=== PATIENT | male | born 1980 | race Caucasian/White ===

== ENCOUNTER 2021-06-23 14:36 | Emergency (ER) | payer BC, SELFPAY ==
--- NOTE | ~2021-06-23 | CT_ITS ---
EXAMINATION: CT abdomen pelvis wo con DATE: 06/23/2021 15:15 INDICATION: Right flank pain TECHNIQUE: Computed tomography (CT) of the abdomen was performed without intravenous contrast. The do se-length product (DLP) was 912.26 mGy-cm. Automated exposure control and iterative reconstruction te nique were employed. COMPARISON: 08/15/2013 FINDINGS: The lung bases are clear. The heart size is normal. The liver, spleen, pancreas, gallbladde r, and adrenal glands are normal. There is a 7 mm stone in the right distal ureter. There is a 7 mm s tone at the right ureterovesicular junction as well. These result in moderate right hydroureteronephr osis. Nonobstructing stones of the left kidney measure up to 6 mm. No pathologically enlarged abdomin al or pelvic lymph nodes are identified. There is no free intraperitoneal gas or evidence of bowel ob struction. There is mild lumbar spondylosis at L5-S1. IMPRESSION: 1. 7 mm stones in the right distal ureter and at the right ureterovesicular junction causing moderate right hydroureteronephrosis. 2. Left nephrolithiasis. Reviewed, dictated and finalized at location A. IMPRESSION: 1. 7 mm stones in the right distal ureter and at the right ureterovesicular amada ction causing moderate right hydroureteronephrosis. 2. Left nephrolithiasis.
[2021-06-23 14:50] VITALS: BP 187/110; PULSE 75; RESP 18; TEMP 36.4; O2SAT 96
[2021-06-23] MEDS: SODIUM CHLORIDE 0.9% IV 500 ML 999 ML IV CONT (15:05)
[2021-06-23] MEDS: ONDANSETRON INJ 4 MG/2 ML VIAL IV PUSH (15:05)
[2021-06-23] MEDS: MORPHINE SULFATE (*CRX) 2 MG/ML INJ IV PUSH ×3 (15:06→16:46)
[2021-06-23 15:12] LABS: Add Urine Microscopic? YES; Appearance Urine Clear (Clear); Bilirubin Urine Negative (Negative); Blood Urine 2+ (Negative); Color Urine Light Yellow (Yellow); Glucose Urine UA Negative (Negative); Ketones Urine Negative (Negative); Leukocyte Esterase Ur Negative (Negative); Nitrate Urine Negative (Negative); Protein Urine Trace (Negative); Specific Grav Ur >= 1.030 (1.010-1.020); Urobilinogen Urine 0.2 mg/dL (0.2-1.0)
[2021-06-23 15:12] LABS: Basophils Absolute Auto 0.09 K/mm3 (0.00-0.10); Basophils Percent Auto 0.7 % (0.0-1.0); Eosinophils Absolute Auto 0.48 K/mm3 (0.02-0.50); Eosinophils Percent Auto 3.9 % (1.0-6.0); Hematocrit 46.4 % (40.0-54.0); Hemoglobin 15.6 g/dL (14.0-18.0); Immature Granulocyte Absolute 0.08 K/mm3 (0.00-0.00); Immature Granulocyte Percent A 0.7 % (0.0-0.0); Lymphocytes Absolute Auto 1.77 K/mm3 (1.10-4.50); Lymphocytes Percent Auto 14.4 % (18.0-42.0); Mean Corpuscular HGB Conc 33.6 g/dL (32.0-36.0); Mean Corpuscular Hemoglobin 29.2 pg (27.0-31.0); Mean Corpuscular Volume 86.9 fL (78.0-102.0); Mean Platelet Volume 9.3 fl (8.7-11.0); Monocytes Absolute Auto 0.95 K/mm3 (0.10-0.90); Monocytes Percent Auto 7.8 % (2.0-11.0); Neutrophils Absolute Auto 8.9 K/mm3 (1.7-7.2); Neutrophils Percent Auto 72.5 % (50.0-70.0); Platelet Count Result 278 K/mm3 (150-420); Red Blood Count 5.34 M/mm3 (4.70-6.10); Red Cell Distribution Width 12.3 % (11.6-14.4); White Blood Count 12.3 K/mm3 (4.8-10.8)
[2021-06-23 15:18] LABS: RBC Urine 21-50 /hpf (0-2); WBC Urine 0-3 /hpf (0-3)
[2021-06-23 15:19] LABS: Bacteria Urine 1+ /hpf
[2021-06-23 15:30] LABS: Alanine Aminotransferase 44 U/L (16-63); Albumin Level 4.7 g/dL (3.4-5.0); Alkaline Phosphatase 61 U/L (46-116); Anion Gap 14 mmol/L (8-16); Aspartate Amino Transferase 30 U/L (15-37); Bilirubin,Total 0.8 mg/dL (0.00-1.00); Blood Urea Nitrogen 17 mg/dL (7-18); Calcium 10.2 mg/dL (8.5-10.1); Carbon Dioxide 24 mmol/L (21-32); Chloride 104 mmol/L (98-108); Estimated CRCL calculation 84 ml/min; Estimated Glomerular Filt Rate > 60; Glucose 170 mg/dL (70-99); Osmolality Calculated 299 mOsm/kg (285-295); Potassium 4.1 mmol/L (3.5-5.1); Sodium 142 mmol/L (136-145); Total Protein 8.3 g/dL (6.4-8.2)
[2021-06-23 15:47] VITALS: BP 159/108; PULSE 71
--- NOTE | 2021-06-23 16:06 | PC.NURSE ---
1554- [facility] CONTACTED FOR TRANSFER, PTS FIRST CHO[facility], NO BEDS AVAILABLE PER ANDREA MCDONALD RN. 1558- [facility] CONTACTED FOR TRANSFER, NO BEDS AVAILBLE PER LÁZARO. 1600-[facility] [place] CONTACTED NO BEDS AVAIBLE PER MYRANDA. 1601-SPOKE WITH PT ABOUT OTHER OPTIONS, DECIDED TO TRY THE [facility]. 1603-[facility] TRANSFER LINE CONTACTED, SPOKE WITH DAMON WHO STATE THERE ARE POSSIBLE BEDS AT [place]. 1604-[facility] WITH [place] ACCESS LINE SPEAKING WITH DR MARQUES.
[2021-06-23] MEDS: cloNIDine HCL 0.2 MG TABLET PO (16:12)
--- NOTE | 2021-06-23 16:13 | ED.ABDPAIN ---
HPI - Abdominal Pain General Chief Complaint: Urogenital-Male Stated Complaint: kidney stones Time Seen by Provider: 06/23/21 14:52 Source: patient, family and RN notes reviewed Mode of arrival: ambulatory Limitations: no limitations History of Present Illness MD elicited complaint: flank pain Pertinent past history: kidney stones Onset (ago): hour(s) (6) Location: chest Severity: mild Pain scale (0-10): 3 Quality: aching and dull Radiation: none Migration to: no migration Exacerbating factors: movement Relieving factors: rest Associated symptoms: nausea and hematuria Related Data Home Medications Medication Instructions Recorded Confirmed levetiracetam 500 mg PO BID 06/23/21 06/23/21 lovastatin 10 mg PO DAILY 06/23/21 06/23/21 metformin 500 mg PO DAILY 06/23/21 06/23/21 topiramate 100 mg PO BID 06/23/21 06/23/21 Allergies Allergy/AdvReac Type Severity Reaction Status Date / Time No Known Allergies Allergy Verified 06/23/21 14:48 Review of Systems Review of Systems: All systems reviewed & are unremarkable except as noted in HPI and below Constitutional: Constitutional: Reports as per HPI and Reports no additional constitutional complaints Eyes: Eyes: Reports as per HPI and Reports no additional eye complaints ENT: Reports system reviewed and no additional complaints, except as documented and Reports as per HPI Cardiovascular: Cardiovascular: Reports as per HPI and Reports no additional cardiovascular complaints Respiratory: Respiratory: Reports as per HPI and Reports no additional respiratory complaints Gastrointestinal: Gastrointestinal: Reports as per HPI and Reports no additional gastrointestinal complaints Genitourinary: Genitourinary: Reports no additional male genitourinary complaints, Reports as per HPI and Reports hematuria Musculoskeletal: Musculoskeletal: Reports no additional musculoskeletal complaints and Reports as per HPI Integumentary/Breasts: Skin/Breast: Reports system reviewed and no additional complaints, except as docu and Reports as per HPI Neurologic: Reports system reviewed and no additional complaints, except as documented and Reports as per HPI Psychiatric: Psychiatric: Reports no additional psychiatric complaints and Reports as per HPI Endocrine: Endocrine: Reports no additional endocrine complaints and Reports as per HPI Hematologic/Lymphatic: Hematologic/Lymphatic: Reports no additional hematologic/lymphatic complaints and Reports as per HPI Allergic/Immunologic: Allergic/Immunologic: Reports no additional allergic/immunologic complaints and Reports as per HPI [facility] Past Medical History Medical History (Updated 06/23/21 @ 19:03 by Cynthia Perez MD) Diabetes mellitus Exam Const: General: no acute distress and alert Nutritional Appearance: well nourished Orientation/consciousness: patient oriented x3 Limitations: no limitations HENMT: Head: normal to inspection Ears: external ears normal and TM's normal bilaterally General nose exam: Normal external nose present and Normal nares present Mouth: Yes lip normal and Yes moist mucous membranes Teeth and gingiva: dentition normal Throat: posterior oropharynx normal Eyes: Conjunctivae: conjunctivae normal Pupils: Equal, round and reactive pupils present EOM: EOMs intact bilaterally Neck: Neck: normal visual inspection and no lymphadenopathy Chest: Chest palpation & inspection: normal inspection of the chest and abnormal inspection of the chest Resp: Effort & Inspection: normal respiratory effort Auscultation: clear to auscultation bilaterally Cardio: Rate: regular rate Rhythm: regular rhythm GI: GI Palp: Yes Soft to palpation Percussion: Yes normal to percussion Auscultation: normal bowel sounds : General: Yes CVA tenderness (minimally tender right flank and right CVA) Back/Spine/Pelvis: Back: CVA tenderness Skin: General skin exam: normal color Rashes: no rashes Neuro: General: patient or
--- NOTE | 2021-06-23 16:30 | PC.NURSE ---
DR MARQUES SPEAKING WITH UROLOGIST AT [facility]
[2021-06-23 16:47] VITALS: BP 163/111
--- NOTE | 2021-06-23 16:53 | PC.NURSE ---
[place] ACCESS LINE REQUESTING RAPID COVID TEST TO BE PERFORMED AND THEN CALLED WITH RESULTS.
[2021-06-23 17:12] VITALS: BP 147/95; PULSE 72; RESP 16; O2SAT 95
[2021-06-23 17:31] LABS: SARS-CoV-2 Ag Negative (Negative)
--- NOTE | 2021-06-23 17:37 | PC.NURSE ---
[facility] TRANSFER LINE CONTACTED WITH NEGATIVE COVID RESULTS.
--- NOTE | 2021-06-23 18:18 | PC.NURSE ---
pt accepted to [facility] room 2265 family and pt aware.
--- NOTE | 2021-06-23 18:21 | PC.NURSE ---
report to margie sanchez at [place] [facility] contacted for transfer.
[2021-06-23 18:34] VITALS: BP 132/84; PULSE 68; RESP 16; O2SAT 96
== END 2021-06-23 19:28 | disposition short-term general hospital (02) ==
PROVIDERS: Emergency Provider Emergency Medicine; PCP Physician Assistant
DX: N20.1 Calculus of ureter (principal); N30.01 Acute cystitis with hematuria
CPT/HCPCS: 36415; 74176; 80053; 81001; 85025; 87426; 96361; 96365; 96375; 96376; 99283; 99284; 99285; A9270; C9803; J0696; J2270; J2405; J7040

== ENCOUNTER 2021-10-10 02:44 | Emergency (ER) | payer BC, SELFPAY ==
--- NOTE | ~2021-10-10 | CT_ITS ---
EXAMINATION: CT abdomen pelvis w con DATE: 10/10/2021 04:21 INDICATION: Left abdominal pain. Leukocytosis. TECHNIQUE: Computed tomography (CT) of the abdomen and pelvis was performed with 100 mL Omnipaque 350 intravenous contrast. Automated exposure control and iterative reconstruction technique were employe d. The dose-length product was 1555.20 mGy-cm. COMPARISON: CT abdomen and pelvis 06/23/2021 FINDINGS: The visualized portions of the lung bases demonstrate mild atelectasis. No pleural effusion . The heart size is normal. No pericardial effusion. The liver, gallbladder, spleen, pancreas, and ad renal glands are normal. There are cysts in the kidneys measuring up to 15 mm on the left. There is a delayed left-sided contrast nephrogram. There are 5 mm, 5 mm, and 3 mm stones in left kidney. There is mild left hydronephrosis. There are 4 mm and 5 mm stones in proximal left ureter. There are no dil ated loops of bowel. The appendix is normal. There are no pathologically enlarged lymph nodes. There is no free intraperitoneal fluid. There is mild thoracolumbar spondylosis. IMPRESSION: 1. 5 mm and 4 mm stones in proximal left ureter with mild left hydronephrosis. 2. Nonobstructing left kidney stones. Reviewed, dictated and finalized at location A. INSTRUCTOR
[2021-10-10 03:00] VITALS: BP 160/99; PULSE 93; RESP 20; TEMP 36.8; O2SAT 99
--- NOTE | 2021-10-10 03:08 | ED.ABDPAIN ---
HPI - Abdominal Pain General Chief Complaint: Abdominal Pain Stated Complaint: abdominal pain Time Seen by Provider: 10/10/21 03:08 Source: patient Mode of arrival: ambulatory Limitations: no limitations History of Present Illness HPI narrative: 41-year-old man with a history of type 2 diabetes and seizures comes in today complaining of left-sided flank pain that has been present for last 3 days. Patient states that it feels like when he has had kidney stones in the past. Said no difficulty urinating, blood in his urine, fever. He had some vomiting yesterday. He was last diagnosed with urolithiasis in May for which he had surgery. MD elicited complaint: flank pain Pertinent past history: kidney stones Onset (ago): day(s) (3) Pain Consistency: constant Location: L flank Severity: severe Quality: sharp Radiation: back Migration to: no migration Exacerbating factors: nothing Relieving factors: nothing Associated symptoms: nausea and vomiting Related Data Home Medications Medication Instructions Recorded Confirmed levetiracetam 500 mg PO BID 06/23/21 10/10/21 lovastatin 10 mg PO DAILY 06/23/21 10/10/21 metformin 500 mg PO DAILY 06/23/21 10/10/21 topiramate 100 mg PO BID 06/23/21 10/10/21 fish,saf,flx,brg oils-O3,6,9#2 1 cap PO DAILY 10/10/21 10/10/21 [Yafn-Rdxe-Rptitr Oil] multivitamin [Daily Multivitamin] 1 tablet PO DAILY 10/10/21 10/10/21 Allergies Allergy/AdvReac Type Severity Reaction Status Date / Time No Known Allergies Allergy Verified 06/23/21 14:48 Review of Systems Review of Systems: All systems reviewed & are unremarkable except as noted in HPI and below Constitutional: Constitutional: Denies chills and Denies fever(s) Cardiovascular: Cardiovascular: Denies chest pain and Denies radiating jaw, neck or arm pain Respiratory: Respiratory: Denies cough and Denies dyspnea Gastrointestinal: Gastrointestinal: Reports abdominal pain, Reports nausea and Reports vomiting Genitourinary: Genitourinary: Denies hematuria, Denies dysuria and Denies urinary frequency Musculoskeletal: Musculoskeletal: Denies back pain, Denies arthralgias and Denies joint swelling Integumentary/Breasts: Skin/Breast: Denies pruritus, Denies erythema and Denies rash Neurologic: Denies vertigo, Denies dizziness, Denies syncope and Denies focal weakness Hematologic/Lymphatic: Hematologic/Lymphatic: Denies easy bleeding and Denies easy bruising Allergic/Immunologic: Allergic/Immunologic: Denies lip swelling and Denies throat swelling PMFSH Past Medical History Medical History (Updated 10/10/21 @ 03:22 by Teodoro Andrews MD) Diabetes mellitus Seizures Surgical History Surgical History (Updated 10/10/21 @ 03:20 by Teodoro Andrews MD) Hx of brain surgery Social History Social History (Updated 10/10/21 @ 03:21 by Teodoro Andrews MD) Smoking status: Never smoker Substance use: never Living arrangements: with family Exam Const: General: healthy appearing and alert Orientation/consciousness: patient oriented x3 Limitations: no limitations Other: moderate acute distress. Resp: Effort & Inspection: normal respiratory effort and not labored Auscultation: clear to auscultation bilaterally, no rales, no rhonchi and no wheezes Cardio: Rate: regular rate Rhythm: regular rhythm Heart sounds: no murmurs GI: GI Palp: Yes Soft to palpation, No Tenderness to palpation present (GI) and No Guarding due to palpation present (GI) Auscultation: normal bowel sounds Skin: General skin exam: normal color, no jaundice and no pallor Rashes: no rashes Neuro: General: patient oriented x3, moves all extremities, no focal motor deficits and CN's II-XI intact bilaterally Speech: normal speech Gait exam (Neuro): Normal gait present Extrem: General: normal to inspection and no clubbing, cyanosis or edema Psych: Appearance: grossly normal and well kempt Mental Status: mental status grossly normal Affect: normal
[2021-10-10] MEDS: ONDANSETRON INJ 4 MG/2 ML VIAL IV PUSH (03:20)
[2021-10-10] MEDS: KETOROLAC 30 MG/ML VIAL (*BKC) IV PUSH (03:21)
[2021-10-10] MEDS: HYDROmorphone HCL INJ (*CRX) 2 MG/ML VIAL 0.5 MG IV PUSH (03:22)
[2021-10-10] MEDS: SODIUM CHLORIDE 0.9% IV 500 ML 999 ML IV CONT ×2 (03:25→04:30)
[2021-10-10 03:30] LABS: Add Urine Microscopic? NO; Appearance Urine Clear (Clear); Basophils Absolute Auto 0.04 K/mm3 (0.00-0.10); Basophils Percent Auto 0.3 % (0.0-1.0); Bilirubin Urine Negative (Negative); Blood Urine Negative (Negative); Color Urine Light Yellow (Yellow); Eosinophils Absolute Auto 0.25 K/mm3 (0.02-0.50); Eosinophils Percent Auto 1.8 % (1.0-6.0); Glucose Urine UA Negative (Negative); Hematocrit 45.9 % (40.0-54.0); Hemoglobin 15.7 g/dL (14.0-18.0); Immature Granulocyte Absolute 0.04 K/mm3 (0.00-0.00); Immature Granulocyte Percent A 0.3 % (0.0-0.0); Ketones Urine Negative (Negative); Leukocyte Esterase Ur Negative LEU/UL (Negative); Lymphocytes Absolute Auto 1.31 K/mm3 (1.10-4.50); Lymphocytes Percent Auto 9.5 % (18.0-42.0); Mean Corpuscular HGB Conc 34.2 g/dL (32.0-36.0); Mean Corpuscular Hemoglobin 29.6 pg (27.0-31.0); Mean Corpuscular Volume 86.4 fL (78.0-102.0); Mean Platelet Volume 9.3 fl (8.7-11.0); Monocytes Absolute Auto 1.56 K/mm3 (0.10-0.90); Monocytes Percent Auto 11.4 % (2.0-11.0); Neutrophils Absolute Auto 10.5 K/mm3 (1.7-7.2); Neutrophils Percent Auto 76.7 % (50.0-70.0); Nitrate Urine Negative (Negative); Platelet Count Result 246 K/mm3 (150-420); Protein Urine Negative (Negative); Red Blood Count 5.31 M/mm3 (4.70-6.10); Red Cell Distribution Width 11.9 % (11.6-14.4); Urobilinogen Urine 0.2 mg/dL (0.2-1.0); White Blood Count 13.7 K/mm3 (4.8-10.8)
[2021-10-10 03:45] LABS: Alanine Aminotransferase 38 U/L (16-63); Albumin Level 4.4 g/dL (3.4-5.0); Alkaline Phosphatase 61 U/L (46-116); Anion Gap 15 mmol/L (8-16); Aspartate Amino Transferase 25 U/L (15-37); Bilirubin,Total 1.1 mg/dL (0.00-1.00); Blood Urea Nitrogen 21 mg/dL (7-18); Calcium 9.4 mg/dL (8.5-10.1); Carbon Dioxide 24 mmol/L (21-32); Chloride 100 mmol/L (98-108); Estimated CRCL calculation 56 ml/min; Estimated Glomerular Filt Rate 37; Glucose 162 mg/dL (70-99); Osmolality Calculated 295 mOsm/kg (285-295); Potassium 3.8 mmol/L (3.5-5.1); Sodium 139 mmol/L (136-145); Total Protein 7.9 g/dL (6.4-8.2)
[2021-10-10 03:50] LABS: Lactic Acid Reflex 0.9 mmol/L (0.4-2.0)
[2021-10-10 04:20] VITALS: BP 110/80; PULSE 81; RESP 18; O2SAT 95
[2021-10-10 04:28] VITALS: BP 110/80; PULSE 79; RESP 16; O2SAT 97
[2021-10-10 04:50] VITALS: BP 126/79; PULSE 81; RESP 18; TEMP 36.4; O2SAT 99
== END 2021-10-10 04:58 | disposition home or self-care (01) ==
PROVIDERS: Emergency Provider Emergency Medicine; PCP Physician Assistant
DX: N20.1 Calculus of ureter (principal)
CPT/HCPCS: 36415; 74177; 80053; 81003; 83605; 85025; 96374; 96375; 99283; 99284; J1170; J1885; J2405; J7040; Q9967

== ENCOUNTER 2021-10-12 04:11 | Emergency (ER) | payer BC, SELFPAY ==
--- NOTE | ~2021-10-12 | XR_ITS ---
EXAMINATION: XR abdomen/kub 1V DATE: 10/12/2021 05:22 INDICATION: Left ureteral stone. TECHNIQUE: A supine view of the abdomen on 3 radiographs was obtained. COMPARISON: CT abdomen and pelvis 10/10/2021 FINDINGS: There are no dilated loops of bowel. There is a 5 mm stone in proximal left ureter. There a re stones in left kidney measuring up to 5 mm. A 5 mm density overlying the bladder may be a stone. IMPRESSION: 1. 5 mm stone in proximal left ureter. 2. Left kidney stones measuring up to 5 mm. 3. 5 mm density overlying the bladder that is indeterminate for a bladder stone. Reviewed, dictated and finalized at location A. PING [employer] RECEIVING ASSOCIATE IMPRESSION: 1. 5 mm stone in proximal left ureter. 2. Left kidney stones measuring up to 5 mm. 3. 5 mm density overlying the bladder that is indeterminate for a bladder stone .
--- NOTE | 2021-10-12 04:15 | ED.ABDPAIN ---
HPI - Abdominal Pain General Chief Complaint: Abdominal Pain Stated Complaint: PAIN Time Seen by Provider: 10/12/21 04:14 Source: patient Mode of arrival: ambulatory Limitations: no limitations History of Present Illness HPI narrative: 41-year-old man with a history of urolithiasis comes in today complaining of persisting left flank pain and nausea. Patient states that he has had no fever, vomiting, blood in his urine. Was seen here 2 days ago and he was found to have a 4 mm and a 5 mm kidney stone in his left proximal ureter with mild left hydronephrosis. Patient states he has been taking oral pain medication with little effect. Patient states that within the last year he saw a urologist at [place] where he had a procedure to remove stones. MD elicited complaint: flank pain Pertinent past history: kidney stones Onset (ago): day(s) (3) Pain Consistency: constant Location: L flank Severity: severe Related Data Home Medications Medication Instructions Recorded Confirmed levetiracetam 500 mg PO BID 06/23/21 10/10/21 lovastatin 10 mg PO DAILY 06/23/21 10/10/21 metformin 500 mg PO DAILY 06/23/21 10/10/21 topiramate 100 mg PO BID 06/23/21 10/10/21 Allergies Allergy/AdvReac Type Severity Reaction Status Date / Time No Known Allergies Allergy Verified 10/12/21 04:27 [facility] Past Medical History Medical History (Updated 10/12/21 @ 06:54 by Teodoro Andrews MD) Diabetes mellitus Seizures Surgical History Surgical History (Updated 10/10/21 @ 03:20 by Teodoro Andrews MD) Hx of brain surgery Social History Social History (Updated 10/10/21 @ 03:21 by Teodoro Andrews MD) Smoking status: Never smoker Substance use: never Course Course Emergency Course: 0645: Discussed findings with Dr. Flanagan, urologist at [facility]. Dr. Flanagan accepted him for transfer pending available room. Discussed with the patient to states that he would like to have this problem addressed as his pain is not well controlled. Vital Signs Vital signs: Vital Signs Temperature 36.8 C 10/12/21 04:28 Pulse Rate 87 10/12/21 04:28 Respiratory Rate 17 10/12/21 04:28 Blood Pressure 160/94 H 10/12/21 04:28 Pulse Oximetry 98 10/12/21 04:28 Temperature 36.8 C 10/12/21 04:28 Pulse Rate 79 10/12/21 06:30 Respiratory Rate 15 10/12/21 06:30 Blood Pressure 146/92 H 10/12/21 06:30 Pulse Oximetry 97 10/12/21 06:30 Transfer Transfered to: [facility] Transportation: BLS MDM - Abdominal Pain Lab Data Result diagrams: 10/12/21 04:59 10/12/21 04:59 Labs: Lab Results 10/12/21 10/12/21 10/12/21 Range/Units 04:59 04:59 05:30 WBC 12.5 H (4.8-10.8) K/mm3 RBC 5.05 (4.70-6.10) M/mm3 Hgb 15.2 (14.0-18.0) g/dL Hct 44.4 (40.0-54.0) % MCV 87.9 (78.0-102.0) fL MCH 30.1 (27.0-31.0) pg MCHC 34.2 (32.0-36.0) g/dL RDW 12.0 (11.6-14.4) % Plt Count 226 (150-420) K/mm3 MPV 9.3 (8.7-11.0) fl Immature Gran % (Auto) 0.4 H (0.0-0.0) % Neut % (Auto) 76.4 H (50.0-70.0) % Lymph % (Auto) 9.3 L (18.0-42.0) % Dane % (Auto) 10.8 (2.0-11.0) % Eos % (Auto) 2.7 (1.0-6.0) % Baso % (Auto) 0.4 (0.0-1.0) % Lymph # (Auto) 1.16 (1.10-4.50) K/mm3 Dane # (Auto) 1.36 H (0.10-0.90) K/mm3 Eos # (Auto) 0.34 (0.02-0.50) K/mm3 Baso # (Auto) 0.05 (0.00-0.10) K/mm3 Abs Immat Gran (auto) 0.05 H (0.00-0.00) K/mm3 Absolute Neuts (auto) 9.6 H (1.7-7.2) K/mm3 Absolute Nucleated RBC 0.00 (0.00-0.00) K/mm3 Nucleated RBC % 0.0 (0-0.0) % Sodium 135 L (136-145) mmol/L Potassium 3.8 (3.5-5.1) mmol/L Chloride 100 (98-108) mmol/L Carbon Dioxide 24 (21-32) mmol/L Anion Gap 11 (8-16) mmol/L BUN 22 H (7-18) mg/dL Creatinine 2.30 H (0.70-1.30) mg/dL Estim Creat Clear Calc 60 ml/min Estimated GFR 31 L (59 - ) Glucose 149 H (70-99) mg/dL Calculated Osmolality
[2021-10-12 04:28] VITALS: BP 160/94; PULSE 87; RESP 17; TEMP 36.8; O2SAT 98
[2021-10-12] MEDS: HYDROmorphone HCL INJ (*CRX) 2 MG/ML VIAL 1 MG IV PUSH (05:07)
[2021-10-12 05:08] LABS: Basophils Absolute Auto 0.05 K/mm3 (0.00-0.10); Basophils Percent Auto 0.4 % (0.0-1.0); Eosinophils Absolute Auto 0.34 K/mm3 (0.02-0.50); Eosinophils Percent Auto 2.7 % (1.0-6.0); Hematocrit 44.4 % (40.0-54.0); Hemoglobin 15.2 g/dL (14.0-18.0); Immature Granulocyte Absolute 0.05 K/mm3 (0.00-0.00); Immature Granulocyte Percent A 0.4 % (0.0-0.0); Lymphocytes Absolute Auto 1.16 K/mm3 (1.10-4.50); Lymphocytes Percent Auto 9.3 % (18.0-42.0); Mean Corpuscular HGB Conc 34.2 g/dL (32.0-36.0); Mean Corpuscular Hemoglobin 30.1 pg (27.0-31.0); Mean Corpuscular Volume 87.9 fL (78.0-102.0); Mean Platelet Volume 9.3 fl (8.7-11.0); Monocytes Absolute Auto 1.36 K/mm3 (0.10-0.90); Monocytes Percent Auto 10.8 % (2.0-11.0); Neutrophils Absolute Auto 9.6 K/mm3 (1.7-7.2); Neutrophils Percent Auto 76.4 % (50.0-70.0); Platelet Count Result 226 K/mm3 (150-420); Red Blood Count 5.05 M/mm3 (4.70-6.10); White Blood Count 12.5 K/mm3 (4.8-10.8)
[2021-10-12] MEDS: ONDANSETRON INJ 4 MG/2 ML VIAL IV PUSH (05:08)
[2021-10-12] MEDS: SODIUM CHLORIDE 0.9% IV 1,000 ML 999 ML IV CONT (05:12)
[2021-10-12 05:20] LABS: Alanine Aminotransferase 26 U/L (16-63); Albumin Level 4.1 g/dL (3.4-5.0); Alkaline Phosphatase 65 U/L (46-116); Anion Gap 11 mmol/L (8-16); Aspartate Amino Transferase 17 U/L (15-37); Bilirubin,Total 0.9 mg/dL (0.00-1.00); Blood Urea Nitrogen 22 mg/dL (7-18); Calcium 9.2 mg/dL (8.5-10.1); Carbon Dioxide 24 mmol/L (21-32); Chloride 100 mmol/L (98-108); Estimated CRCL calculation 60 ml/min; Estimated Glomerular Filt Rate 31; Glucose 149 mg/dL (70-99); Osmolality Calculated 286 mOsm/kg (285-295); Potassium 3.8 mmol/L (3.5-5.1); Sodium 135 mmol/L (136-145)
[2021-10-12 05:48] LABS: Add Urine Microscopic? YES; Appearance Urine Clear (Clear); Bilirubin Urine Negative (Negative); Blood Urine 2+ (Negative); Color Urine Light Yellow (Yellow); Glucose Urine UA Negative (Negative); Ketones Urine Trace (Negative); Leukocyte Esterase Ur Negative (Negative); Nitrate Urine Negative (Negative); Protein Urine Negative (Negative); Urobilinogen Urine 0.2 mg/dL (0.2-1.0); pH Urine 6.5 (5.0-8.0)
[2021-10-12 05:54] LABS: Bacteria Urine None seen /hpf; WBC Urine None seen /hpf (0-3)
[2021-10-12 06:30] VITALS: BP 146/92; PULSE 79; RESP 15; O2SAT 97
--- NOTE | 2021-10-12 07:46 | PC.NURSE ---
Jennifer called with bed assignment.
--- NOTE | 2021-10-12 08:05 | PC.NURSE ---
Phone report given to Jennifer Pan RN
--- NOTE | 2021-10-12 08:06 | PC.NURSE ---
[facility] called for transport.
[2021-10-12 08:47] VITALS: BP 122/59; PULSE 77; RESP 16; O2SAT 95
== END 2021-10-12 08:51 | disposition short-term general hospital (02) ==
PROVIDERS: Emergency Provider Emergency Medicine
DX: N20.1 Calculus of ureter (principal); N17.9 Acute kidney failure, unspecified
CPT/HCPCS: 36415; 74018; 80053; 81001; 85025; 87086; 96361; 96374; 96375; 99285; J1170; J2405; J7030